=== PATIENT | female | born 1960 | race Caucasian/White ===

== ENCOUNTER → 2016-10-29 | Outpatient (CLI) | payer OTHER ==
[~2016-10-29] MED LIST: ANT25 PO
== END | disposition home or self-care (01) ==
LOC: C.PAPS 09:50
PROVIDERS: ATTEND Obstetrics & Gynecology
DX: Z12.4 Encounter for screening for malignant neoplasm of cervix (principal)

== ENCOUNTER → 2016-11-30 | Outpatient (CLI) | payer OTHER ==
--- NOTE | 2016-11-30 15:10 | DIAGNOSTIC IMAGING REPORT ---
RIBS BILATERAL WITH PA CHEST CLINICAL HISTORY: 56 years-old Female presenting with CHEST WALL PAIN. TECHNIQUE: Frontal and oblique views of the bilateral ribs were obtained as well as PA view of the chest. COMPARISON: None. FINDINGS: Cardiomediastinal silhouette normal. Lungs and pleural spaces clear. Osseous structures intact. No evidence of displaced rib fracture. Mild stool burden. IMPRESSION: No evidence of rib fracture. No acute cardiopulmonary disease. Electronically signed by: Odin Chowdhury M.D. 11/30/2016 3:08 PM Dictated Date/Time: 11/30/2016 3:06 PM
[2016-11-30 17:40] LABS: BASO % 0.4 %; BASO ABS # 0.02 K/uL (0-0.2); COMPLETE YES; EOS % 5.9 %; HEMATOCRIT 42.5 % (37-47); LYMPH ABS # 1.38 K/uL (1.2-3.4); MEAN CELL VOLUME 89.7 fL (80-100); MEAN CORPUSCULAR HEMOGLOBIN 29.5 pg (25-34); MEAN CORPUSCULAR HGB CONC 32.9 g/dl (32-36); MEAN PLATELET VOLUME 10.2 fL (7.4-10.4); MONO % 6.3 %; NEUT % 57.4 %; PLATELET COUNT 241 K/uL (130-400); RED BLOOD COUNT 4.74 M/uL (4.2-5.4)
[2016-11-30 17:56] LABS: BLOOD UREA NITROGEN 14 mg/dl (7-18); BUN/CREATININE RATIO 18.3 (10-20); CALCIUM 9.3 mg/dl (8.5-10.1); CARBON DIOXIDE 30 mmol/L (21-32); CHLORIDE 104 mmol/L (98-107); CREATININE 0.79 mg/dl (0.60-1.20); GLUCOSE 105 mg/dl (70-99); POTASSIUM 3.5 mmol/L (3.5-5.1); SODIUM 139 mmol/L (136-145)
== END | disposition home or self-care (01) ==
LOC: C.RADPV 14:35
PROVIDERS: ATTEND Nurse Practitioner
DX: R07.89 Other chest pain (principal); R41.89 Other symptoms and signs involving cognitive functions and awareness; G47.8 Other sleep disorders

== ENCOUNTER → 2017-03-08 | Outpatient (CLI) | payer OTHER ==
--- NOTE | 2017-03-09 05:43 | PAP/PSG TECHNICIAN REPORT ---
[facility] [employer] Helper Polysomnogram Report Study name: None Report date: 03/09/2017 Study date: 03/08/2017 Referring Physician: Justice Squires M.D. Name: SRUTHI RICH Interpreting Physician: Justice Squires M.D. Date of : 1960 [employer] Machine Helper: Paulette Gleason RPS. Sex: Female Age: 56 StudyType: PSG Weight: 168 lbs Height: 56 years, Height 5' 3" Neck Circum: 13 inches BMI: 29.76 Medications: [place] [employer] Provitality mineral packet, Colon Enzymes, Stomach Betagest, Probiotic, Calcium/magnesium/Yanet D Patient History 56 yr. old female here for a diagnostic sleep study. Patient complains of fatigue, fragmented sleep, and frequent awakenings. Patients [place] Sleepiness Scale Score is 11/24. Parameters Monitored NPSG: E1-M2, E2-M1, Fp1-M2, Fp2-M1, F3-M2, F4-M2, F4-M1, C3-M2, C4-M2, C4-M1, O1-M2, O2-M2, O2-M1, T3-M2, T4-M1, P3-M2, P4-M1, CHIN1, CHIN2, HR, EKG, Legs, PFLOW, SNOR, FLOW, CFLOW, Tidal Volume, THOR, ABDO, SpO2, PLTH, CPRESS, ETCO2 Wave, ETCO2, pH Sleep Architecture Sleep Stages Time at Lights Off 8:32:57 PM STAGES Time (min.) TST (%) Time at Lights On 5:29:57 AM Wake 135.0 -- Total Recording Time (TRT) 535.00 min. N1 34.0 9 Total Sleep Period (TSP) 464.5 min. N2 247.5 62 Total Sleep Time (TST) 400.0min. N3 56.5 14 Awake Time 135.0 min. REM 62.0 16 Wake after Sleep Onset 86.0 min. Sleep Efficiency (SE) 75 % Sleep Onset Latency (CRIS) 51.0 min. Number of Stage 1 Shifts None Awakenings 20 Stage Changes 88 Number of REM periods 6 REM 62.0 16 REM Latency 191.5 min. NREM 338.0 85 Body Position Analysis Supine Right Left Side Prone Vertical Total Sleep Time (min.) 392.1 50.7 0.0 50.66 0.0 41.2 Total Sleep Time (%) 87% 13% 0% 13 0% N/A% Total Sleep Time REM (min.) 62.0 0.0 0.0 None 0.0 0.0 Total Sleep Time NREM (min.) 287.3 50.7 0.0 None 0.0 0.0 Intermittent Wake (min.) 42.7 50.9 0.0 None 0.0 41.2 Total Sleep Period (%) 82% None None None None None Arousals Myoclonus (PLM) * Events Count Index Events Count Index Spontaneous 4 1 Events Awake (PLMW) 159 70.7 Respiratory 2 0.3 Events Asleep w/ Arousal (PLMA) 31 4.7 PLM 30 5 Events Asleep w/o Arousal (PLMS) 145 21.8 Snoring 1 0 Total Asleep 176 26.4 Total 37 6 Total 335 38 Respiratory Analysis * CA OA MA CH H RERA Total Count 5 1 0 0 22 0 28 Index 0.8 0.2 0.0 0 3.3 0 4.2 Mean Duration 12.9 14.2 0.0 0.00 24.0 0.0 21.7 Longest Duration 19.0 14.2 0.0 0.00 0.0 0.0 51.1 Respiratory Event Summary Total Supine ~Supine Right Left Prone REM NREM Apneas Count 6 6 0 0 N/A N/A 0 6 Index 0.9 1 0 0.0 N/A N/A 0 1 Hypopneas (4% Desat) Count 22 22 0 0 N/A N/A 12 10 Index 3.3 3.8 0 0.0 N/A N/A 11.6 1.8 Apneas & All Hypopneas Count 28 28 0 0 N/A N/A 12 16 Index 4.2 5 0 0 N/A N/A 11.6 2.8 Respiratory Events (Principal Java Software Engineer+All Hyp+RERA) Count 28 28 0 0 N/A N/A 12 16 Index 4.2 5 0 0.0 N/A N/A 11.6 2.8 Respiratory Related Arousal Count 2 28 0 0 N/A N/A 1 1 Index 0.3 0 0 0 N/A N/A 1 0 Snoring Analysis Supine Right Left Prone REM NREM Total Snore duration 0.4 min Snores count 20 2 N/A N/A 6 16 22 Snore mean duration 1.1 Sec Snores index 3 2 N/A N/A 5.8 2.8 3.3 TST with snoring (%) 0.1% Desaturation Event Summary: Minimum %SpO2 Event Count Mean/Min/Max Duration(sec.) Desaturation Index % Time In Bed > 90 43 30.8 / 4.0 / 60.0 4.9 99.5 86 - 90 0 N/A 0.0 0.5 81 - 85 0 N/A 0.0 0.0 76 - 80 0 N/A 0.0 0.0 71 - 75 0 N/A 0.0 0.0 66 - 70 0 N/A 0.0 0.0 61 - 65 0 N/A 0.0 0.0 56 - 60 0 N/A 0.0 0.0 51 - 55 0 N/A 0.0 0.0 < 50 0 N/A 0.0 0.0 Total REM NREM Awake <50% 0.0 min. 0.0 min. 0.0 min. 0.0 min. 51 - 60% 0.0 min. 0.0 min. 0.0 min. 0.0 min. 61 - 70% 0.0 min. 0.0 min. 0.0 min. 0.0 min. 71 - 80% 0.0 min. 0.0 min. 0.0 min. 0.0 min. 81 - 90% 2.9 min. 0.7 min. 1.8 min. 0.3 min. 91 - 100% 526.5 min. 61.3 min. 336.1 min. 129.1 min. Average 94 94 94 94 Minimum SpO2 84 87 89 84 Desaturation Event Index 4.8 10.6 2.7 8.4 # Desat. Events below 89% 2 1 N/A 1 Time(%) with Saturation below 89% 0.1 0.0 0.0 0.0 Time(min.) with Saturation below 89% 0.3 0.2 0.0 0.2 Time (mins) REM (mins) NREM (mins) % of TST SpO2 Below 90% 11 5 N6 0.1 SpO2 Below 88% 1 0 0 0 Heart Rate Analysis Min (bpm) Max (bpm) Average (bpm) Awake 56 150 68 NREM 55 86 64 REM 58 72 63 Overall 55 86 64 Supplemental O2 Values Minimum O2 level: None Value Start Time End Time C[employer] Machine Helper Comments MS. Rich slept in the right and supine positions. No cardiac arrhythmia. PLMs noted. No bruxism noted. Snoring was noted and scored as a0 on a scale of 0 through 5. (0=no snoring, 5=snoring loud enough to be heard through a closed door or down the [address] way) MS. Rich awoke to use the restroom once during the night. MS. Rich stated, last night was a little worse than normal. The final report will be interpreted and signed by a sleep physician. The completed physician report will then be placed in the patient medical record. Therapy (cm H2O) 0 TIB (min.) 535.0 TST (min.) 400.0 Sleep Onset (min.) 51.0 REM Onset From Sleep (min.) 191.5 Sleep Efficiency % 75 Wakefulness (%) 25 Wakefulness (min.) 135.0 NREM 1 (%) 9 NREM 1 (min.) 34.0 NREM 2 (%) 62 NREM 2 (min.) 247.5 NREM 3 (%) 14 NREM 3 (min.) 56.5 REM (%) 16 REM (min.) 62.0 # Arousals 37 Arousal Index 6 # Snore 22 Snore Index 3.3 AHI 4.2 AHI Supine 5 AHI Non-Supine 0 NREM AHI 2.8 REM AHI 11.6 RDI 4.2 # Obstructive Apnea 1 # Central Apnea 5 # Mixed Apnea 0 # Hypopneas 22 RERAs 0 Total Respiratory Events 30 Time Below SpO2 89% (min.) 0.2 Mean NREM SpO2 (%) 94 Mean REM SpO2 (%) 94 Mean Sleep SpO2 (%) 94 Min NREM SpO2 (%) 89 Min REM SpO2 (%) 87 Position Supine (min.) 392.1 Position Non-supine (min.) 50.7 LM Index Sleep 26.4 LM Index NREM 29.1 LM Index REM 11.6 Mean Heart Rate (bpm) 64 Min Heart Rate (bpm) 55
== END | disposition home or self-care (01) ==
LOC: C.NEUR 20:00
PROVIDERS: ATTEND Internal Medicine Pulmonary Disease
DX: F07.81 Postconcussional syndrome (principal); R53.83 Other fatigue; G47.00 Insomnia, unspecified; G47.8 Other sleep disorders

== ENCOUNTER → 2017-03-17 | Outpatient (CLI) | payer OTHER | END | disposition home or self-care (01) | LOC: C.LAB1850 10:35 | PROVIDERS: ATTEND Psychiatry & Neurology Neurology | DX: G47.61 Periodic limb movement disorder (principal) ==